=== PATIENT | female | born 1985 | race Caucasian/White ===

== ENCOUNTER → 2017-09-24 | Outpatient (CLI) | payer OTHER ==
[~2017-09-24] MED LIST: ALBU8.5H8 INH; CARI350T14 PO; GADOBUTROL 10 MMOL/10 ML VIAL ONE; HYDR-882 PO; LACT1CAP37 PO; LORA-446 PO; NORE1TAB11 PO; TOPI100T24 PO; TOPI100T8 PO
== END | disposition home or self-care (01) ==
LOC: RAD 09:03
PROVIDERS: ATTEND Family Medicine
DX: R10.11 Right upper quadrant pain (principal); R22.2 Localized swelling, mass and lump, trunk
CPT/HCPCS: 74183; A9585